=== PATIENT | female | born 1950 | race Caucasian/White ===

== ENCOUNTER 2019-05-16 07:49 | Day surgery (SDC) | payer MEDICARE ==
[2019-05-15 09:30] VITALS: BMI 25.7
[2019-05-16 08:23] LABS: Hemoglobin 13.1 g/dL (12.0-16.0)
[2019-05-16] MEDS ORDERED: AFRIN NASAL MIST 15 ML BOT ONE ×2 (08:30→09:28)
[2019-05-16 08:36] LABS: Anion Gap 11 mmol/L (10-20); BUN (Urea Nitrogen) 25 mg/dL (9.8-20.1); Calc. Creatinine Clearance 58 mL/min (70-130); Calcium 9.8 mg/dL (7.8-10.44); Carbon Dioxide 31 mmol/L (23-31); Chloride 102 mmol/L (98-107); Estimated GFR-MDRD 56; Glucose 95 mg/dL (80-115); Potassium 4.1 mmol/L (3.5-5.1); Sodium 140 mmol/L (136-145)
[2019-05-16] MEDS ORDERED: Fentanyl 100 MCG/2 ML VIAL ONE ×2 (09:27→13:00)
[2019-05-16] MEDS ORDERED: Midazolam HCl 2 mg/2 ml Vial ONE (09:27)
[2019-05-16] MEDS ORDERED: Lidocaine 1% w/Epinephrine 1:100K 20 ML VIAL ONE (09:28)
[2019-05-16] MEDS ORDERED: Glycopyrrolate 0.2 MG/ML 5 ML SYRINGE ONE (09:52)
[2019-05-16] MEDS ORDERED: Lidocaine 1% PF 5 ML VIAL ONE (09:52)
[2019-05-16] MEDS ORDERED: PHENYLEPHRINE-NS 100 MCG/ML 10 ML SYRINGE ONE (09:52)
[2019-05-16] MEDS ORDERED: Dexamethasone 20 MG/5 ML VIAL ONE (09:52)
[2019-05-16] MEDS ORDERED: Ondansetron PF 4 MG/2 ML Vial ONE (09:52)
[2019-05-16] MEDS ORDERED: Rocuronium Bromide 10 MG/ML (10ML VIAL) ONE (09:52)
[2019-05-16] MEDS ORDERED: PROPOFOL 200 MG/20 ML VIAL ONE (09:52)
[2019-05-16] MEDS ORDERED: Bacitracin Zinc Ointment 30 gm TUBE ONE (12:11)
[2019-05-16] MEDS ORDERED: Promethazine HCl 25 MG/ML VIAL ONE (12:43)
[2019-05-16] MEDS ORDERED: HYDROcodone/Acetaminophen 5/325 mg Tablet ONE (13:45)
--- NOTE | 2019-05-16 15:19 | EKG ---
Test Reason : PREOP Blood Pressure : / mmHG Vent. Rate : 081 BPM Atrial Rate : 081 BPM P-R Int : 146 ms QRS Dur : 074 ms QT Int : 372 ms P-R-T Axes : 056 047 056 degrees QTc Int : 432 ms Normal sinus rhythm Low voltage QRS Borderline ECG Confirmed by RUBEN GHOSH ([id number]) on 05/16/2019 3:18:50 PM Referred By: FARHAD Confirmed By:RUBEN GHOSH
--- NOTE | 2019-05-17 09:00 | OP ---
DATE OF PROCEDURE: 05/16/2019 POSTOPERATIVE DIAGNOSES: Recurrent acute sinusitis with facial pain and pressure and turbinate hypertrophy as well as chronic sinusitis. PROCEDURES PERFORMED: Bilateral image guidance endoscopic surgery, bilateral maxillary antrostomies with removal of tissue, bilateral total ethmoidectomy, bilateral sphenoidotomy with removal of tissue, bilateral frontal sinusotomy with removal of tissue, bilateral inferior turbinates submucosal resection and lateralization of the inferior turbinates, and bilateral removal of jaron bullosa. PERMIT: Procedures, benefits, and risks including those of bleeding, infection, injury from anesthesia, allergic reactions, cerebrospinal fluid leak necessitating revision or repair and alternatives were reviewed with the patient and family, who expressed understanding of the information and the consent form was signed and witnessed and a paper copy of the consent form is available for review in the paper chart. INDICATION: Female patient presenting to clinic with radiographic findings of mild sinusitis; however, she is having significant symptoms and on endoscopic evaluation, she has polyposis of the nasal cavity as well as purulence in the nasal cavity. ASSISTANTS: None. FINDINGS: Bilateral nasal polyposis as well as inflammation and purulence found in the ethmoid and maxillary sinuses. DESCRIPTION OF OPERATION: The patient was brought back to the operating room and laid supine on the operating room table. General endotracheal anesthesia was administered and the septum and the middle turbinate were injected with 1% lidocaine with 1:100,000 epinephrine and 6 Afrin-soaked pledgets were placed with 3 on each side of the nasal cavity. The patient was then prepped and draped in the usual fashion and image guidance was then calibrated and used throughout the entire case for localization. The nose was then evaluated endoscopically. Nasal polyposis was seen bilaterally and an oscillating debrider was used to remove the extensive nasal polyposis. The patient was seen to have inflammation and significant jaron bullosa on each side. At this point, a sickle knife was used to make an incision on the anterior superior aspect of the jaron bullosa on the left side, which extended inferiorly and posteriorly and endoscopic scissors were used to remove the jaron bullosa on the left side and the same procedure was performed on the right with using a sickle knife to make the incision and endoscopic scissors to remove the lateral aspect of the jaron bullosa leaving the middle turbinate intact. At this point, the uncinate process was located and a ball-ended seeker was used to locate the maxillary antrum and after the maxillary antrum was located on the left side, a backbiter was used to remove the uncinate process and an oscillating microdebrider was used to make a maxillary antrostomy and polypoid tissue was removed as well as purulence was suctioned from the left maxillary sinus. At this point, the ethmoid bulla was taken down with a combination of a J curette and an oscillating microdebrider and carried posteriorly to the basal turn of the lamella, which was then opened with microdebrider and inferior aspect of the superior turbinate was located and removed until the sphenoid ostium was found at the planum sphenoidale and the sphenoid was then opened using a 2 Kerrison punch. After the skull base was identified, the ethmoidectomy continued from a posterior to anterior motion using a J curette and microdebrider as well as a [address] to the floor of the frontal sinus. The frontal sinus was located using a curved image guided suction and a mushroom punch and a Cobra was used to remove the floor of the frontal sinus opening the frontal sinus on the left side. Next, Afrin-soaked pledgets were placed along the surgically excised tissue margins for hemostasis and attention was turned to the right side, where similar procedure was undertaken. The right maxillary antrum was identified with a ball-ended seeker and widened and the uncinate process was taken down with a backbiter and the maxillary antrostomy was made with an oscillating microdebrider and with the endoscope and next the ethmoid bulla was taken down and with microdebrider, the ethmoidectomy progressed from anterior to posterior approach until the basal turn of the lamella, which was opened with the microdebrider until the inferior aspect of the superior turbinate was identified and partially removed until the sphenoid ostium could be located and opened with a 2 Kerrison punch for polypoid tissue removal from the sphenoid sinus. After the skull base was identified, the ethmoidectomy continued from a posterior to anterior motion with a J curette as well as the microdebrider all the way to the floor of the frontal sinus. The frontal sinus ostia were located with curved image guided suction and the frontal sinus was opened with the aid of a mushroom punch as well as a Cobra until the frontal sinus was open. At this point, Afrin-soaked pledgets were placed for hemostasis and attention was turned to the inferior turbinates, where a stab incision was made at the anterior-inferior aspect of the inferior turbinates and oscillating turbinate blade was used to remove the erectile tissue from inside the each inferior turbinates and then a suction Bovie was used for hemostasis bilaterally on the each side and after this was performed, the inferior turbinates were then lateralized with a Conde elevator. At this point, the Afrin-soaked pledgets were removed from both sides and the sinuses were evaluated with the endoscope and were copiously irrigated on both sides and then suctioned and there was found to be no bleeding. At this point, the endoscopes were withdrawn and the patient tolerated the procedure well without complications and was turned back to Anesthesia for emergence. Job ID: [id number]
== END 2019-05-16 15:10 | disposition home or self-care (01) ==
LOC: SDC 07:49
PROVIDERS: ATTEND Student in an Organized Health Care Education/Training Program
PROC: 09TL8ZZ Resection of Nasal Turbinate, Via Natural or Artificial Opening Endoscopic (ICD-10-PCS; principal; 2019-05-16)
PROC: 09BT8ZZ Excision of Left Frontal Sinus, Via Natural or Artificial Opening Endoscopic (ICD-10-PCS; 2019-05-16)
PROC: 09BW8ZZ Excision of Right Sphenoid Sinus, Via Natural or Artificial Opening Endoscopic (ICD-10-PCS; 2019-05-16)
PROC: 09BX8ZZ Excision of Left Sphenoid Sinus, Via Natural or Artificial Opening Endoscopic (ICD-10-PCS; 2019-05-16)
PROC: 09BQ8ZZ Excision of Right Maxillary Sinus, Via Natural or Artificial Opening Endoscopic (ICD-10-PCS; 2019-05-16)
PROC: 09BR8ZZ Excision of Left Maxillary Sinus, Via Natural or Artificial Opening Endoscopic (ICD-10-PCS; 2019-05-16)
PROC: 09BS8ZZ Excision of Right Frontal Sinus, Via Natural or Artificial Opening Endoscopic (ICD-10-PCS; 2019-05-16)
PROC: 8E09XBZ Computer Assisted Procedure of Head and Neck Region (ICD-10-PCS; 2019-05-16)
PROC: 09TV8ZZ Resection of Left Ethmoid Sinus, Via Natural or Artificial Opening Endoscopic (ICD-10-PCS; 2019-05-16)
PROC: 09TU8ZZ Resection of Right Ethmoid Sinus, Via Natural or Artificial Opening Endoscopic (ICD-10-PCS; 2019-05-16)
DX: J01.81 Other acute recurrent sinusitis (principal); J32.8 Other chronic sinusitis; J34.3 Hypertrophy of nasal turbinates; J33.0 Polyp of nasal cavity; I25.10 Atherosclerotic heart disease of native coronary artery without angina pectoris; I10 Essential (primary) hypertension; M19.90 Unspecified osteoarthritis, unspecified site; K21.9 Gastro-esophageal reflux disease without esophagitis; G62.9 Polyneuropathy, unspecified; Z79.899 Other long term (current) drug therapy
CPT/HCPCS: 36415; 80048; 85014; 85018; 93005; 93010; J1100; J2001; J2250; J2405; J2550; J2704; J3010

== ENCOUNTER 2019-05-30 15:32 | Outpatient (CLI) | payer MEDICARE | END 2019-05-30 15:33 | disposition home or self-care (01) | LOC: CTENTCT 15:32 | PROVIDERS: ATTEND Specialist | DX: J32.9 Chronic sinusitis, unspecified (principal) | CPT/HCPCS: 70486 ==

== ENCOUNTER 2020-11-25 16:33 | Outpatient (CLI) | payer MEDICARE ==
[2020-11-25 17:23] LABS: Hemoglobin 12.3 g/dL (12.0-15.5); Mean Corpuscular HGB CONC 32.9 g/dL (32.0-36.0); Mean Corpuscular Hemoglobin 30.8 pg (27.0-33.0); Mean Corpuscular Volume 93.5 fl (81.6-98.3); Mean Platelet Volume 9.2 fl (7.4-10.4); Platelet Count 304 10x3/uL (150-450); RBC Distribution Width 14.7 % (11.5-14.5); White Blood Cell (WBC) Count 11.1 10x3/uL (3.5-10.5)
[2020-11-25 17:40] LABS: Anion Gap 14 mmol/L (10-20); BUN (Urea Nitrogen) 24 mg/dL (9.8-20.1); Calc. Creatinine Clearance 0 mL/min (70-130); Calcium 9.9 mg/dL (7.8-10.44); Carbon Dioxide 25 mmol/L (23-31); Chloride 100 mmol/L (98-107); Glucose 92 mg/dL (80-115); Potassium 4.7 mmol/L (3.5-5.1); Sodium 134 mmol/L (136-145)
[2020-11-26 13:05] LABS: SARS-CoV-2 PCR by NAA Not Detected (NotDetected)
== END 2020-11-25 16:34 | disposition home or self-care (01) ==
LOC: LABBT 16:33
PROVIDERS: ATTEND Specialist
DX: Z01.818 Encounter for other preprocedural examination (principal); J32.9 Chronic sinusitis, unspecified; J34.89 Other specified disorders of nose and nasal sinuses; R09.81 Nasal congestion; H93.8X1 Other specified disorders of right ear; H93.11 Tinnitus, right ear; Z20.822 Contact with and (suspected) exposure to COVID-19
CPT/HCPCS: 80048; 85027; 93005; U0003; U0005; 93010

== ENCOUNTER 2020-11-28 07:53 | Day surgery (SDC) | payer MEDICARE ==
[2020-11-27 11:40] VITALS: BMI 25.7
[2020-11-28] MEDS ORDERED: Fentanyl 100 MCG/2 ML VIAL ONE (08:43)
[2020-11-28] MEDS ORDERED: AFRIN NASAL MIST 15 ML BOT ONE ×2 (09:25→09:40)
[2020-11-28] MEDS ORDERED: Lidocaine 1% w/Epinephrine 1:100K 30 ML VIAL ONE (09:40)
[2020-11-28] MEDS ORDERED: Rocuronium Bromide 10 MG/ML (10ML VIAL) ONE (10:19)
[2020-11-28] MEDS ORDERED: PHENYLEPHRINE-NS 100 MCG/ML 10 ML SYRINGE ONE (10:19)
[2020-11-28] MEDS ORDERED: Glycopyrrolate 0.2 MG/ML 5 ML SYRINGE ONE (10:19)
[2020-11-28] MEDS ORDERED: PROPOFOL 200 MG/20 ML VIAL ONE (10:19)
[2020-11-28] MEDS ORDERED: Calcium Chloride 1 GM/10 ML Abboject SYRINGE ONE (10:19)
[2020-11-28] MEDS ORDERED: Ondansetron PF 4 MG/2 ML Vial ONE (10:19)
[2020-11-28] MEDS ORDERED: Lidocaine 1% PF 5 ML VIAL ONE (10:19)
[2020-11-28] MEDS ORDERED: Dexamethasone 20 MG/5 ML VIAL ONE (10:19)
[2020-11-28] MEDS ORDERED: ePHEDrine 50 MG/ML VIAL ONE (10:19)
[2020-11-28] MEDS ORDERED: EPINEPHrine 1 MG/ML AMP ONE (10:33)
[2020-11-28] MEDS ORDERED: SUGAMMADEX SODIUM 200 MG/2 ML VIAL ONE (11:33)
[2020-11-28] MEDS ORDERED: HYDROcodone/Acetaminophen 5/325 mg Tablet ONE (13:29)
== END 2020-11-28 14:20 | disposition home or self-care (01) ==
LOC: SDC 07:53
PROVIDERS: ATTEND Specialist
PROC: 8E09XBZ Computer Assisted Procedure of Head and Neck Region (ICD-10-PCS; principal; 2020-11-28)
PROC: 09TU8ZZ Resection of Right Ethmoid Sinus, Via Natural or Artificial Opening Endoscopic (ICD-10-PCS; 2020-11-28)
PROC: 099S8ZZ Drainage of Right Frontal Sinus, Via Natural or Artificial Opening Endoscopic (ICD-10-PCS; 2020-11-28)
DX: J32.1 Chronic frontal sinusitis (principal); M86.8X8 Other osteomyelitis, other site; J34.89 Other specified disorders of nose and nasal sinuses; I11.9 Hypertensive heart disease without heart failure; I25.10 Atherosclerotic heart disease of native coronary artery without angina pectoris; M19.90 Unspecified osteoarthritis, unspecified site; K21.9 Gastro-esophageal reflux disease without esophagitis; G57.92 Unspecified mononeuropathy of left lower limb; Z85.43 Personal history of malignant neoplasm of ovary; Z79.899 Other long term (current) drug therapy; Z98.890 Other specified postprocedural states
CPT/HCPCS: 31253; 61782; 87070; 87075; 87077; 87186; 87205; C1726; J0171; J1100; J2405; J2704; J3010; J3490